=== PATIENT | female | born 1965 | race Two or more races ===

== ENCOUNTER 2018-01-11 11:07 | Day surgery (SDC) | payer OTHER ==
[2018-01-11] MEDS ORDERED: FENTAnyl 50 MCG/ML VIAL (14:09)
[2018-01-11] MEDS ORDERED: MIDAZOLAM 1 MG/ML 2 ML INJ ×2 (14:09→14:10)
== END 2018-01-11 14:38 | disposition home or self-care (01) ==
LOC: GIL 11:07
DX: Z12.11 Encounter for screening for malignant neoplasm of colon (principal); K64.8 Other hemorrhoids
CPT/HCPCS: 45378